=== PATIENT | male | born 1970 | race Two or more races ===

== ENCOUNTER 2024-07-17 21:45 | Emergency (ER) | payer SELFPAY ==
[~2024-07-17] VITALS: Ht 167.6 cm; Wt 73.9 kg
[2024-07-17] MEDS: LIDOCAINE 1% HCL (LOCAL ANESTH.) INJ 20ML MDV ID ONE (22:15)
[2024-07-17] MEDS: KETOROLAC TROMETH 30 MG/ML 1ML VIAL IM ONE (22:15)
[2024-07-18 00:15] VITALS: BP 127/67; PULSE 96; RESP 16; TEMP 98.1; O2SAT 99
[2024-07-18] MEDS: BACITRACIN TOP OINT 1 UD PKG TOP ONE (01:03)
[2024-07-18] MEDS ORDERED: AMOX875T4 PO (01:19)
[2024-07-18] MEDS ORDERED: HYDR-4902 PO (01:19)
== END 2024-07-18 01:40 | disposition home or self-care (01) ==
LOC: ER 21:45
DX: S52.612A Displaced fracture of left ulna styloid process, initial encounter for closed fracture (principal); V87.8XXA Person injured in other specified noncollision transport accidents involving motor vehicle (traffic), initial encounter; Y93.55 Activity, bike riding; Y92.89 Other specified places as the place of occurrence of the external cause; Y99.8 Other external cause status
CPT/HCPCS: 12004; 73110